=== PATIENT | female | born 2000 | race Caucasian/White ===

== ENCOUNTER 2018-02-13 12:14 | Emergency (ER) | payer OTHER ==
[2018-02-13 12:31] VITALS: BP 124/72
[2018-02-13] MEDS ORDERED: ZOFRAN ODT PO ONE (12:55)
[2018-02-13] MEDS ORDERED: ALUM-MAG HYDROX-SIMETH 200-200-20MG/5ML PO ONE (12:56)
--- NOTE | 2018-02-13 12:57 | Emergency Department Report ---
Blank Doc - Documentation Documentation: Patient is a 17-year-old female who is presenting with nausea vomiting. Patient states this morning she was eating well. He became nauseous and vomited. Patient states the first emesis of vomiting there was no blood present however subsequent episodes of vomiting did show that she had some blood in her vomit. Patient is denying any pain at all. Patient does state she has some lower abdominal discomfort however. Patient most likely has Bharti-Carrillo tears given Maalox and Zofran and the patient will be monitored. Patient will be reassessed.
--- NOTE | 2018-02-13 13:02 | Emergency Department Report ---
ED Abdominal Pain HPI - General Chief Complaint: GI Bleed Stated Complaint: VOMITING BLOOD Time Seen by Provider: 02/13/18 12:46 Source: patient Mode of arrival: Ambulatory Limitations: No Limitations - History of Present Illness Initial Comments: Patient is a 17-year-old female who is presenting with nausea vomiting. Patient states this morning she was eating well. He became nauseous and vomited. Patient states the first emesis of vomiting there was no blood present however subsequent episodes of vomiting did show that she had some blood in her vomit. Patient is denying any pain at all. Patient does state she has some lower abdominal discomfort however. Patient most likely has Bharti-Carrillo tears given Maalox and Zofran and the patient will be monitored. Patient will be reassessed. MD Complaint: abdominal pain Onset/Timin -: hour(s) Location: LLQ Radiation: none Severity: mild Severity scale (0 -10): 2 Quality: aching Consistency: intermittent Improves With: nothing Worsens With: nothing Context: other (n/v after eating waffles this am) Associated Symptoms: nausea, vomiting, hematemesis. denies: diarrhea, fever, chills, constipation, dysuria, hematochezia, melena, hematuria, anorexia, syncope - Related Data Allergies Allergy/AdvReac Type Severity Reaction Status Date / Time No Known Allergies Allergy Unverified 02/13/18 12:26 ED Review of Systems ROS: Stated complaint: VOMITING BLOOD Other details as noted in HPI Constitutional: denies: chills, fever Eyes: denies: eye pain, eye discharge, vision change ENT: denies: ear pain, throat pain Respiratory: denies: cough, shortness of breath, wheezing Cardiovascular: denies: chest pain, palpitations Endocrine: no symptoms reported Gastrointestinal: nausea, vomiting, hematemesis. denies: abdominal pain, diarrhea, constipation, melena, hematochezia Genitourinary: denies: urgency, dysuria, frequency, hematuria, discharge, abnormal menses Musculoskeletal: denies: back pain, joint swelling, arthralgia Skin: denies: rash, lesions Neurological: denies: headache, weakness, paresthesias Psychiatric: denies: anxiety, depression Hematological/Lymphatic: denies: easy bleeding, easy bruising ED Past Medical Hx - Past Medical History Previous Medical History?: No - Surgical History Past Surgical History?: No - Social History Smoking Status: Never Smoker Substance Use Type: None ED Physical Exam - General Limitations: No Limitations General appearance: alert, in no apparent distress - Head Head exam: Present: atraumatic, normocephalic - Eye Eye exam: Present: normal appearance - ENT ENT exam: Present: mucous membranes moist - Neck Neck exam: Present: normal inspection - Respiratory Respiratory exam: Present: normal lung sounds bilaterally. Absent: respiratory distress - Cardiovascular Cardiovascular Exam: Present: regular rate, normal rhythm. Absent: systolic murmur, diastolic murmur, rubs, gallop - GI/Abdominal GI/Abdominal exam: Present: soft, normal bowel sounds. Absent: distended, tenderness, guarding, rebound, rigid, organomegaly, mass, bruit, pulsatile mass , hernia - Rectal Rectal exam: Present: deferred - Extremities Exam Extremities exam: Present: normal inspection, full ROM. Absent: tenderness - Back Exam Back exam: Present: normal inspection - Neurological Exam Neurological exam: Present: alert, oriented X3 - Psychiatric Psychiatric exam: Present: normal affect, normal mood - Skin Skin exam: Present: warm, dry, intact, normal color. Absent: rash ED Course Vital Signs 02/13/18 12:26 Temperature 98.5 F Pulse Rate 114 H Respiratory 18 Rate Blood Pressure 124/72 O2 Sat by Pulse 99 Oximetry ED Medical Decision Making - Medical Decision Making pt given maalox and zofran denies abdominal pain or n/v a this time will monitor status provide po challenge and reassess. Critical care attestation.: If time is entered above; I have spent that time in minutes in the direct care of this critically ill patient, excluding procedure time. ED Disposition Condition: Stable Referrals: PRIMARY CARE, [Primary Care Provider] - 3-5 Days
--- NOTE | 2018-02-13 14:32 | Emergency Department Report ---
ED GI Bleed HPI - General Chief complaint: GI Bleed Stated complaint: VOMITING BLOOD Time Seen by Provider: 02/13/18 12:46 Source: patient Mode of arrival: Ambulatory Limitations: No Limitations - History of Present Illness Initial comments: Patient is a 17-year-old female who is presenting with nausea vomiting. Patient states this morning she was eating well. He became nauseous and vomited. Patient states the first emesis of vomiting there was no blood present however subsequent episodes of vomiting did show that she had some blood in her vomit. Patient is denying any pain at all. Patient does state she has some lower abdominal discomfort however. Patient most likely has Bharti-Carrillo tears given Maalox and Zofran and the patient will be monitored. Patient will be reassessed. - Related Data Previous Rx's Medication Instructions Recorded Last Taken Type Mag Hydrox/Aluminum Hyd/Simeth 30 ml PO TID PRN #1 bottle 02/13/18 Unknown Rx [Maalox Advanced Suspension] Ondansetron [Zofran Odt] 4 mg PO TID PRN #20 tab.rapdis 02/13/18 Unknown Rx Allergies Allergy/AdvReac Type Severity Reaction Status Date / Time No Known Allergies Allergy Unverified 02/13/18 12:26 ED Review of Systems ROS: Stated complaint: VOMITING BLOOD Other details as noted in HPI Constitutional: denies: chills, fever Eyes: denies: eye pain, eye discharge, vision change ENT: denies: ear pain, throat pain Respiratory: denies: cough, shortness of breath, wheezing Cardiovascular: denies: chest pain, palpitations Endocrine: no symptoms reported Gastrointestinal: nausea, vomiting, hematemesis. denies: abdominal pain, constipation, melena, hematochezia Genitourinary: denies: urgency, dysuria, discharge Musculoskeletal: denies: back pain, joint swelling, arthralgia Skin: denies: rash, lesions Neurological: denies: headache, weakness, paresthesias Psychiatric: denies: anxiety, depression Hematological/Lymphatic: denies: easy bleeding, easy bruising ED Past Medical Hx - Past Medical History Previous Medical History?: No - Surgical History Past Surgical History?: No - Social History Smoking Status: Never Smoker Substance Use Type: None - Medications Home Medications: Home Medications Medication Instructions Recorded Confirmed Last Taken Type Mag Hydrox/Aluminum Hyd/Simeth 30 ml PO TID PRN #1 bottle 02/13/18 Unknown Rx [Maalox Advanced Suspension] Ondansetron [Zofran Odt] 4 mg PO TID PRN #20 tab.rapdis 02/13/18 Unknown Rx ED Physical Exam - General Limitations: No Limitations General appearance: alert, in no apparent distress - Eye Eye exam: Present: normal appearance - ENT ENT exam: Present: mucous membranes moist - Neck Neck exam: Present: normal inspection - Respiratory Respiratory exam: Present: normal lung sounds bilaterally. Absent: respiratory distress - Cardiovascular Cardiovascular Exam: Present: regular rate, normal rhythm. Absent: systolic murmur, diastolic murmur, rubs, gallop - GI/Abdominal GI/Abdominal exam: Present: normal bowel sounds. Absent: distended, tenderness , guarding, rebound, rigid, organomegaly, mass, bruit, pulsatile mass, hernia - Extremities Exam Extremities exam: Present: normal inspection - Back Exam Back exam: Present: normal inspection - Neurological Exam Neurological exam: Present: alert, oriented X3 - Psychiatric Psychiatric exam: Present: normal affect, normal mood - Skin Skin exam: Present: warm, dry, intact, normal color. Absent: rash ED Course Vital Signs 02/13/18 02/13/18 12:26 14:26 Temperature 98.5 F Pulse Rate 114 H Respiratory 18 18 Rate Blood Pressure 124/72 O2 Sat by Pulse 99 99 Oximetry ED Medical Decision Making - Medical Decision Making pt states all symptoms resolved patient is now tolerating by mouth intake without nausea vomiting there is no hemoptysis no dizziness no lightheadedness No abdominal pain and cramping vaginal discharge or vaginal bleeding plan DC home in stable condition without prescriptions for Zofran ODT Maalox by mouth when necessary nausea or vomiting patient will continue to hydrate and follow with [facility] in 2-3 days as scheduled . Critical care attestation.: If time is entered above; I have spent that time in minutes in the direct care of this critically ill patient, excluding procedure time. ED Disposition Clinical Impression: Vomiting Qualifiers: Vomiting type: unspecified Vomiting Intractability: non-intractable Nausea presence: with nausea Qualified Code(s): R11.2 - Nausea with vomiting, unspecified Disposition: DC-01 TO HOME OR SELFCARE Is pt being admited?: No Does the pt Need Aspirin: No Condition: Good Instructions: Acute Nausea and Vomiting (ED), Hyperemesis Gravidarum (ED) Prescriptions: Mag Hydrox/Aluminum Hyd/Simeth [Maalox Advanced Suspension] 30 ml PO TID PRN #1 bottle PRN Reason: nausea heartburn Ondansetron [Zofran Odt] 4 mg PO TID PRN #20 tab.rapdis PRN Reason: Nausea And Vomiting Referrals: NAOMI HANDLEY MD [Staff Physician] - 3-5 Days Forms: Accompanied Note, Work/School Release Form(ED) Time of Disposition: 14:40
== END 2018-02-13 14:45 | disposition home or self-care (01) ==
LOC: ED 12:14
DX: R11.2 Nausea with vomiting, unspecified (principal)
CPT/HCPCS: 99282; Q0162